=== PATIENT | male | born 2000 | race Hispanic/Latino ===

== ENCOUNTER → 2022-01-03 | Emergency (ER) | payer MEDICAID ==
[~2022-01-03] VITALS: Ht 172.7 cm; Wt 72.6 kg
[2022-01-03 07:09] VITALS: BP 104/72
== END | disposition left against medical advice (07) ==
LOC: EEVIPCON 07:06 → EDH 07:06
DX: Z01.83 Encounter for blood typing (principal); Z53.21 Procedure and treatment not carried out due to patient leaving prior to being seen by health care provider